=== PATIENT | female | born 1970 | race Caucasian/White ===

== ENCOUNTER 2017-05-23 16:41 | Emergency (ER) | payer OTHER ==
[2017-05-23] MEDS: LIDOCAINE/EPI/TETRACAINE TOPICAL GEL 3 ML. TP (17:12)
[2017-05-23] MEDS: LIDOCAINE WITH 8.4% SOD BICARB 3 ML DISP.SYRIN. IJ (18:00)
[2017-05-23] MEDS: DIPHTH,PERTUSS(ACELL),TET TOX 0.5 ML DISP.SYRIN. VAX IM (18:16)
== END 2017-05-23 18:30 | disposition home or self-care (01) ==
LOC: ER 16:41
DX: S71.112A Laceration without foreign body, left thigh, initial encounter (principal); J44.9 Chronic obstructive pulmonary disease, unspecified; Z90.710 Acquired absence of both cervix and uterus; W01.118A Fall on same level from slipping, tripping and stumbling with subsequent striking against other sharp object, initial encounter; Y93.89 Activity, other specified; Y92.096 Garden or yard of other non-institutional residence as the place of occurrence of the external cause; Y99.8 Other external cause status
CPT/HCPCS: 12002; 73552; 90471; 90715; 99284-25